=== PATIENT | female | born 1985 | race Asian ===

== ENCOUNTER → 2024-05-23 15:16 | Outpatient (REF) | payer OTHER, SELFPAY | LOC: RAD 15:16 | PROVIDERS: ATTENDING PHYSICIAN Physician Assistant | DX: R20.9 Unspecified disturbances of skin sensation (principal) | CPT/HCPCS: 93922; 93925 ==

== ENCOUNTER 2025-05-24 11:03 | Emergency (ER) | payer OTHER, SELFPAY ==
[2025-05-24] VITALS (7 sets, daily range): BP systolic 103–125; BP diastolic 67–96; BMI 19.2
--- NOTE | 2025-05-24 11:39 | ED.GENMED ---
History of Present Illness
General
Chief Complaint: Allergic Reaction
Source: patient
Exam Limitations: none
Time Seen by Provider: 05/24/25 11:08
History of Present Illness
History of Present Illness:
39yoF with no significant past medical history presenting for evaluation of allergic reaction. Patient was doing yard work outside this morning. She was stung by a wasp at 9:30 AM. She immediately started to feel some itching in her hands, feet,
and axillary regions. She then developed hives about 40 minutes later. Patient took 1 dose of Zyrtec and the itchiness has improved although the hives are persistent. She denies any shortness of breath, dysphagia, vomiting, diarrhea. She has
never required epinephrine in the past.
Past History
Past History
ED Past Medical History: None
ED Past Surgical History: None
Social History
Tobacco: Non-smoker
Alcohol: None
Drug: None
Personal:
Living: with family
Employment: Employed
Family History
Family History: Other (No history of kidney stones in the family)
Phy Exam
General Physical Exam
General Presentation: well appearing and no apparent distress
General Skin: warm and dry
General Habitus: normal
General Mental: alert
ENT Exam
ENT Exam: normocephalic and other (No oropharyngeal swelling. Normal phonation.)
Cardiovascular Exam
Cardiovascular Exam: regular rate/rhythm
Pulmonary Exam
Pulmonary Exam: lungs clear, no respiratory distress, no rales, no crackles, no rhonchi and no wheezing
Neurological Exam
Neurological Exam: alert
Elida Coma Scale
Eye Opening: Spontaneous
Verbal Response: Oriented
Motor Response: Obeys Commands
GCS Total Score: 15
Skin Exam
Skin Exam: warm/dry and other (Bee sting noted to L lateral calf with localized erythema. Diffuse urticaria noted.)
Psychiatric Exam
Psychiatric Exam: normal mood/affect
Course
Orders/Labs/Results
Orders:
Orders
05/24/25 11:39
Cardiac Monitoring- Treatment ONCE
0.9% Sodium Chloride 1000 ml [Nss] 1,000 ml IV BOLUS
Dexamethasone Sod Phosphate [Decadron] 10 mg IV NOW STA
Diphenhydramine [Benadryl] 25 mg IV NOW STA
Famotidine [Pepcid] 20 mg IV NOW STA
Vital Signs
Initial and Last Documented VS:
Initial Vital Signs
Temp Pulse Resp BP Pulse Ox
97.6 F 77 16 125/96 96
05/24/25 11:04 05/24/25 11:04 05/24/25 11:04 05/24/25 11:04 05/24/25 11:04
Last Documented Vital Signs
Temp Pulse Resp BP Pulse Ox
98.5 F 71 16 103/67 96
05/24/25 11:40 05/24/25 14:15 05/24/25 12:17 05/24/25 14:00 05/24/25 14:15
MDM/Problems Addressed
Differential Diagnosis Includes:
39yoF presenting for an allergic reaction after a bee sting 2 hours ago. C/o hives and itching. No SOB or GI symptoms. VSS. She is well appearing in no distress. Diffuse urticaria noted on exam. Lungs CTA and no angioedema noted. Differential
diagnosis includes: allergic reaction, anaphylaxis
Initial ED plan: IV Decadron, Benadryl, Pepcid, and fluid bolus ordered. No indication for epinephrine.
*Pulse Oximetry
SaO2: 96
Oxygen Mode of Delivery: Room air
Patient hypoxic: no (96%)
*Critical Care Note
Total Time (30-74mins, 75-104mins- exclusive of procedures): Not Applicable
Update Note
Update Note:
Patient reassessed about 1.5 hours after medications and she is feeling significantly improved. Urticaria mostly resolved. Lungs still clear and vitals are stable. She is stable for discharge. Supportive care discussed. Patient has an EpiPen at home
that she can use if needed. ED return precautions reviewed.
ED Attending Note
-
Portions of this chart may have been created with voice recognition software.� Occasional wrong word or��sound alike� substitutions may have occurred due to the inherent limitations of voice recognition software.
Discharge Plan
Departure
Patient Disposition: Home (Routine Discharge)
Date of Disposition: 05/24/25
Time of Disposition: 13:12
Patient with high blood pressure during this ER visit?: No
Discharge Problem:
Allergic reaction to bee sting
Instructions: Insect bites and stings - ED discharge instructions
Prescriptions:
No Action
epinephrine [EpiPen 2-Jeremiah] 0.3 MG/0.3 ML auto-injector
0.3 mg IJ ONCE PRN (Reason: acute/severe allergic reaction) Qty: 2 0RF
Referrals:
Anabella Estevez CRNP [Family Provider, Family Practice]
Activity Restrictions/Additional Instructions:
Take Benadryl 25 mg every 6 hours as needed for itching/hives.
Please follow-up with your family doctor. Return to the ER with any worsening symptoms including trouble breathing/swallowing or if you have to use your EpiPen.
Interventions
Interventions:
*Risk Screen - Suicide Last Done: 05/24/25 11:40
*General Assessment Last Done: 05/24/25 11:40
*Neglect/Abuse Screening Last Done: 05/24/25 11:40
*ED- Fall Risk Assessment Last Done: 05/24/25 11:40
*ED COVID-19 Vaccine History Last Done: 05/24/25 11:40
*Nursing Disposition Last Done: 05/24/25 14:18
ED- Cardiac Assessment Last Done: 05/24/25 11:40
ED- Pulmonary Assessment Last Done: 05/24/25 11:40
ED-Skin Assessment Last Done: 05/24/25 11:40
Discharge Date and Time
Discharge Date/Time: 05/24/25 14:19
Print Language: SYRIAC
[2025-05-24] MEDS: DECADRON 10 MG IV (11:53)
[2025-05-24] MEDS: PEPCID 20 MG IV (11:54)
[2025-05-24] MEDS: BENADRYL 25 MG IV (11:54)
[2025-05-24] MEDS: NSS 1000 IV (11:58)
== END 2025-05-24 14:19 | disposition home or self-care (01) ==
LOC: EMR 11:03
PROVIDERS: EMERGENCY PHYSICIAN Emergency Medicine; FAMILY PHYSICIAN Nurse Practitioner Family
DX: T63.461A Toxic effect of venom of wasps, accidental (unintentional), initial encounter (principal); L50.9 Urticaria, unspecified
CPT/HCPCS: 96374; 96375; 96361; 99284